=== PATIENT | female | born 1955 | race African-American/Black ===

== ENCOUNTER 2024-05-03 15:47 | Emergency (ER) | payer OTHER, BC ==
[2024-05-03 15:55] VITALS: BP 153/83; PULSE 99; RESP 18; TEMP 98.6; BMI 28.5
[2024-05-03 18:15] LABS: THROAT:GRP A STREP NOT DETECTED (NOTDETECTED)
[2024-05-03 18:38] LABS: BASO % 0.8 % (0-2.0); EOS % 0.6 % (0-4.5); HEMATOCRIT 43.5 % (32.4-45.2); LYMPH % 37.1 % (8-40); MCHC 32.3 g/dl (32.0-36.0); MEAN CELL VOLUME 83.6 fl (80-96); MEAN PLT VOLUME 8.2 fl (7.5-11.1); MONO % 5.5 % (3.8-10.2); PLATELET COUNT 273 10^3/uL (134-434); RDW 14.8 % (11.6-15.6); WHITE BLOOD COUNT 10.6 K/mm3 (4.0-10.0)
[2024-05-03 18:52] LABS: POTASSIUM 4.1 mmol/L (3.5-5.1)
[2024-05-03 18:55] LABS: ALBUMIN 3.8 g/dl (3.4-5.0); BLOOD UREA NITROGEN 13.4 mg/dL (7-18)
[2024-05-03 19:00] LABS: BILIRUBIN,TOTAL 0.5 mg/dL (0.2-1); TOT PROT 7.4 g/dl (6.4-8.2)
== END 2024-05-03 22:44 | disposition home or self-care (01) ==
LOC: JERFT 15:47
DX: R05.9 Cough, unspecified (principal); J06.9 Acute upper respiratory infection, unspecified; Z20.822 Contact with and (suspected) exposure to COVID-19
CPT/HCPCS: 0241U-QW; 36415; 71250-TC; 80053; 85025; 87651; 99284-25